=== PATIENT | female | born 1950 | race Caucasian/White ===

== ENCOUNTER 2017-12-17 12:03 | Emergency (ER) | payer MEDICARE, MEDICAID ==
[~2017-12-17] VITALS: Ht 165.1 cm; Wt 61.0 kg
[2017-12-17] MEDS ORDERED: januvia (12:27)
[2017-12-17] MEDS ORDERED: metformin (12:27)
[2017-12-17 15:57] LABS: BASOPHILS % 0.8 % (0.0-2.0); EOSINOPHILS % 2.5 % (0.0-5.0); HEMATOCRIT. 39.5 % (36.0-48.0); HEMOGLOBIN. 13.3 g/dL (12.0-16.0); LYMPHOCYTES % 19.1 % (20.0-50.0); MEAN CORPUSCULAR HEMOGLOBIN 29.1 pg (28.0-32.0); MEAN CORPUSCULAR VOLUME 86.3 fL (81.0-99.0); MEAN PLATELET VOLUME 8.8 fl (7.4-10.4); MONOCYTES % 6.5 % (2.0-8.0); NEUTROPHILS % 71.1 % (40.0-76.0); PLATELET 268 x1000/uL (130-400); RED BLOOD CELL COUNT 4.58 mill/uL (4.2-5.4); RED CELL DISTRIBUTION WIDTH 12.8 % (11.6-14.6)
[2017-12-17 16:04] LABS: CARBON DIOXIDE 28 mEq/L (21-32); CHLORIDE 105 mEq/L (98-107)
[2017-12-17 17:14] VITALS: BP 123/78
== END 2017-12-17 17:25 | disposition home or self-care (01) ==
LOC: ER 13:28
DX: S90.411A Abrasion, right great toe, initial encounter (principal); Y93.89 Activity, other specified; X58.XXXA Exposure to other specified factors, initial encounter; Y92.89 Other specified places as the place of occurrence of the external cause; E11.65 Type 2 diabetes mellitus with hyperglycemia; R03.0 Elevated blood-pressure reading, without diagnosis of hypertension; M77.31 Calcaneal spur, right foot; Z79.84 Long term (current) use of oral hypoglycemic drugs; Z98.890 Other specified postprocedural states
CPT/HCPCS: 36415; 73630; 80048; 82962; 85025; 99285

== ENCOUNTER 2022-05-19 17:37 | Inpatient (IN) | payer MEDICARE, MEDICAID ==
[~2022-05-19] VITALS: Ht 165.1 cm; Wt 61.2 kg
[~2022-05-19 17:37] MED LIST: ASPI-1406 MT; CLOP-31 MT; METF-414 MT; SITA100T11 MT
[2022-05-19] MEDS ORDERED: ONDANSETRON HCL 4MG/2ML INJ IV ONE (19:15)
[2022-05-19 20:00] LABS: CHLORIDE 89 mEq/L (98-107)
[2022-05-19 20:03] LABS: PROTHROMBIN TIME 11.1 sec (9.6-11.0)
[2022-05-19 20:09] LABS: BASOPHILS % 0.6 % (0.0-2.0); EOSINOPHILS % 0.7 % (0.0-5.0); HEMATOCRIT. 31.4 % (36.0-48.0); HEMOGLOBIN. 10.5 g/dL (12.0-16.0); LYMPHOCYTES % 14.8 % (20.0-50.0); MEAN CORPUSCULAR HEMOGLOBIN 27.9 pg (28.0-32.0); MEAN CORPUSCULAR VOLUME 83.3 fL (81.0-99.0); MEAN PLATELET VOLUME 7.7 fl (7.4-10.4); MONOCYTES % 10.2 % (2.0-8.0); NEUTROPHILS % 73.7 % (40.0-76.0); PLATELET 246 x1000/uL (130-400); RED BLOOD CELL COUNT 3.77 mill/uL (4.2-5.4); RED CELL DISTRIBUTION WIDTH 13.8 % (11.6-14.6)
[2022-05-19] MEDS ORDERED: SODIUM CHLORIDE 0.9% 1,000 ML IV ONE (20:30)
[2022-05-19] MEDS ORDERED: MORPHINE SULFATE 4 MG/ML CPJ (NOT FOR IM USE) IV ONE (21:00)
[2022-05-20 00:45] VITALS: BP 131/55
[2022-05-20] MEDS ORDERED: LISI20TA31 PO (03:51)
[2022-05-20] MEDS ORDERED: PRAV20TA57 PO (03:53)
[2022-05-20] MEDS ORDERED: DOCU240C PO (03:56)
[2022-05-20 04:00] VITALS: BP 113/47
[2022-05-20] MEDS ORDERED: ONDANSETRON HCL 4MG/2ML INJ IV PRN (06:30)
[2022-05-20] MEDS ORDERED: SODIUM CHLORIDE 0.9% 1,000 ML IV SCH (06:30)
[2022-05-20] MEDS ORDERED: DEXTROSE 50% WATER 50ML SYRINGE IV PRN (06:30)
[2022-05-20] MEDS: BLOOD SUGAR DIAGNOSTIC STRIP TEST SCH ×4 (07:20→20:52)
[2022-05-20] MEDS: INSULIN LISPRO 100 UNITS/ML SUBCUT SCH ×4 (07:50→20:52)
[2022-05-20 08:00] VITALS: BP 129/56
[2022-05-20 10:29] LABS: BASOPHILS % 0.5 % (0.0-2.0); EOSINOPHILS % 0.8 % (0.0-5.0); HEMATOCRIT. 30.8 % (36.0-48.0); HEMOGLOBIN. 10.4 g/dL (12.0-16.0); MEAN CORPUSCULAR HEMOGLOBIN 28.2 pg (28.0-32.0); MEAN CORPUSCULAR VOLUME 83.5 fL (81.0-99.0); MEAN PLATELET VOLUME 7.5 fl (7.4-10.4); MONOCYTES % 9.9 % (2.0-8.0); NEUTROPHILS % 71.8 % (40.0-76.0); PLATELET 224 x1000/uL (130-400); RED BLOOD CELL COUNT 3.69 mill/uL (4.2-5.4); RED CELL DISTRIBUTION WIDTH 13.6 % (11.6-14.6)
[2022-05-20 12:00] VITALS: BP 124/56
[2022-05-20 12:00] LABS: CREATINE KINASE MB FRACTION 2.4 ng/mL (0.5-3.6)
[2022-05-20] MEDS: ASPIRIN 81MG EC TABLET PO SCH (13:16)
[2022-05-20] MEDS: CLOPIDOGREL 75MG TABLET PO SCH (13:16)
[2022-05-20 14:56] LABS: CREATINE KINASE 128 IU/L (26-192)
[2022-05-20 15:13] LABS: FERRITIN 50 ng/mL (10-291)
[2022-05-20 15:24] LABS: VITAMIN B12 SERUM >2000 pg/mL pg/mL (211-911)
[2022-05-20] MEDS ORDERED: POTASSIUM CHLORIDE 20MEQ TABLET SR PO NR (15:45)
[2022-05-20 16:00] VITALS: BP 123/87
[2022-05-20 16:24] LABS: FOLIC ACID (FOLATE) SERUM >20 ng/mL ng/mL (>5.38)
[2022-05-20 20:00] VITALS: BP 120/67
[2022-05-20] MEDS: ATORVASTATIN CALCIUM 20MG TABLET PO SCH (21:04)
[2022-05-20] MEDS ORDERED: NALOXONE HCL 0.4MG/ML VIAL IV PRN (23:00)
[2022-05-21] VITALS: BP 138/78
[2022-05-21 03:48] VITALS: BP 117/53
[2022-05-21 05:41] LABS: BASOPHILS % 0.6 % (0.0-2.0); EOSINOPHILS % 2.8 % (0.0-5.0); HEMATOCRIT. 29.9 % (36.0-48.0); HEMOGLOBIN. 10.1 g/dL (12.0-16.0); LYMPHOCYTES % 17.4 % (20.0-50.0); MEAN CORPUSCULAR HEMOGLOBIN 28.4 pg (28.0-32.0); MEAN CORPUSCULAR VOLUME 84.2 fL (81.0-99.0); MEAN PLATELET VOLUME 7.7 fl (7.4-10.4); MONOCYTES % 12.6 % (2.0-8.0); NEUTROPHILS % 66.6 % (40.0-76.0); PLATELET 209 x1000/uL (130-400); RED BLOOD CELL COUNT 3.55 mill/uL (4.2-5.4); RED CELL DISTRIBUTION WIDTH 13.7 % (11.6-14.6)
[2022-05-21] MEDS: BLOOD SUGAR DIAGNOSTIC STRIP TEST SCH ×4 (07:39→21:17)
[2022-05-21] MEDS: INSULIN LISPRO 100 UNITS/ML SUBCUT SCH ×4 (07:41→21:33)
[2022-05-21 08:08] VITALS: BP 114/45
[2022-05-21] MEDS: CLOPIDOGREL 75MG TABLET PO SCH (08:46)
[2022-05-21] MEDS: ASPIRIN 81MG EC TABLET PO SCH (08:46)
[2022-05-21] MEDS ORDERED: FERROUS SULFATE 325MG TABLET PO SCH (09:00)
[2022-05-21 12:00] VITALS: BP 123/41
[2022-05-21] MEDS: TAMSULOSIN HCL 0.4MG SR CAPSULE PO SCH (12:50)
[2022-05-21 16:00] VITALS: BP 126/49
[2022-05-21] MEDS: IRON SUCROSE COMPLEX 100 MG/5 ML ML IV SCH (17:28)
[2022-05-21 20:00] VITALS: BP 110/57
[2022-05-21] MEDS: ATORVASTATIN CALCIUM 20MG TABLET PO SCH (21:18)
[2022-05-22] VITALS: BP 118/58
[2022-05-22 04:00] VITALS: BP 123/54
[2022-05-22] MEDS: BLOOD SUGAR DIAGNOSTIC STRIP TEST SCH ×4 (06:21→20:30)
[2022-05-22 07:21] LABS: BASOPHILS % 0.8 % (0.0-2.0); EOSINOPHILS % 3.3 % (0.0-5.0); HEMATOCRIT. 27.4 % (36.0-48.0); HEMOGLOBIN. 9.5 g/dL (12.0-16.0); LYMPHOCYTES % 17.6 % (20.0-50.0); MEAN CORPUSCULAR HEMOGLOBIN 28.7 pg (28.0-32.0); MEAN PLATELET VOLUME 7.8 fl (7.4-10.4); NEUTROPHILS % 68.3 % (40.0-76.0); PLATELET 210 x1000/uL (130-400); RED BLOOD CELL COUNT 3.31 mill/uL (4.2-5.4); RED CELL DISTRIBUTION WIDTH 13.6 % (11.6-14.6)
[2022-05-22] MEDS: INSULIN LISPRO 100 UNITS/ML SUBCUT SCH ×4 (07:50→20:30)
[2022-05-22 08:00] VITALS: BP 126/60
[2022-05-22] MEDS: TAMSULOSIN HCL 0.4MG SR CAPSULE PO SCH (09:09)
[2022-05-22] MEDS: CLOPIDOGREL 75MG TABLET PO SCH (09:09)
[2022-05-22] MEDS: ASPIRIN 81MG EC TABLET PO SCH (09:10)
[2022-05-22 12:00] VITALS: BP 115/58
[2022-05-22] MEDS: POLYETHYLENE GLYCOL 3350 (17GM) 1 DOSE PACK PO SCH (14:50)
[2022-05-22 16:00] VITALS: BP 137/38
[2022-05-22] MEDS: IRON SUCROSE COMPLEX 100 MG/5 ML ML IV SCH (17:31)
[2022-05-22] MEDS: HYDROCODONE/ACETAMINOPHEN 5/325MG TABLET PO PRN (17:51)
[2022-05-22 20:00] VITALS: BP 117/51
[2022-05-22] MEDS: ATORVASTATIN CALCIUM 20MG TABLET PO SCH (20:43)
[2022-05-23] VITALS: BP 109/49
[2022-05-23 04:00] VITALS: BP 125/57
[2022-05-23] MEDS: BLOOD SUGAR DIAGNOSTIC STRIP TEST SCH ×4 (06:24→21:32)
[2022-05-23 06:51] LABS: BASOPHILS % 0.6 % (0.0-2.0); EOSINOPHILS % 2.8 % (0.0-5.0); HEMATOCRIT. 29.7 % (36.0-48.0); HEMOGLOBIN. 10.2 g/dL (12.0-16.0); LYMPHOCYTES % 14.8 % (20.0-50.0); MEAN CORPUSCULAR HEMOGLOBIN 28.7 pg (28.0-32.0); MEAN CORPUSCULAR VOLUME 83.6 fL (81.0-99.0); MEAN PLATELET VOLUME 7.5 fl (7.4-10.4); MONOCYTES % 8.1 % (2.0-8.0); NEUTROPHILS % 73.7 % (40.0-76.0); PLATELET 215 x1000/uL (130-400); RED BLOOD CELL COUNT 3.55 mill/uL (4.2-5.4); RED CELL DISTRIBUTION WIDTH 13.8 % (11.6-14.6)
[2022-05-23] MEDS: INSULIN LISPRO 100 UNITS/ML SUBCUT SCH ×4 (07:50→21:42)
[2022-05-23 08:00] VITALS: BP 119/69
[2022-05-23] MEDS: CLOPIDOGREL 75MG TABLET PO SCH (09:06)
[2022-05-23] MEDS: HYDROCODONE/ACETAMINOPHEN 5/325MG TABLET PO PRN ×2 (09:07→09:12)
[2022-05-23] MEDS: ASPIRIN 81MG EC TABLET PO SCH (09:11)
[2022-05-23] MEDS: POLYETHYLENE GLYCOL 3350 (17GM) 1 DOSE PACK PO SCH (09:17)
[2022-05-23] MEDS: TAMSULOSIN HCL 0.4MG SR CAPSULE PO SCH (09:18)
[2022-05-23 12:00] VITALS: BP 114/47
[2022-05-23 16:00] VITALS: BP 121/52
[2022-05-23 20:00] VITALS: BP 94/55
[2022-05-23] MEDS: ATORVASTATIN CALCIUM 20MG TABLET PO SCH (21:33)
[2022-05-24] VITALS: BP 110/54
[2022-05-24 04:00] VITALS: BP 105/55
[2022-05-24] MEDS: BLOOD SUGAR DIAGNOSTIC STRIP TEST SCH ×4 (06:32→21:00)
[2022-05-24 07:14] LABS: BASOPHILS % 0.6 % (0.0-2.0); EOSINOPHILS % 2.5 % (0.0-5.0); HEMATOCRIT. 27.6 % (36.0-48.0); HEMOGLOBIN. 9.3 g/dL (12.0-16.0); MEAN CORPUSCULAR HEMOGLOBIN 28.4 pg (28.0-32.0); MEAN CORPUSCULAR VOLUME 84.6 fL (81.0-99.0); MEAN PLATELET VOLUME 7.4 fl (7.4-10.4); MONOCYTES % 9.5 % (2.0-8.0); NEUTROPHILS % 69.4 % (40.0-76.0); PLATELET 205 x1000/uL (130-400); RED BLOOD CELL COUNT 3.26 mill/uL (4.2-5.4)
[2022-05-24] MEDS: INSULIN LISPRO 100 UNITS/ML SUBCUT SCH ×4 (07:47→23:00)
[2022-05-24 08:00] VITALS: BP 93/51
[2022-05-24] MEDS: POLYETHYLENE GLYCOL 3350 (17GM) 1 DOSE PACK PO SCH (09:21)
[2022-05-24] MEDS: ASPIRIN 81MG EC TABLET PO SCH (09:22)
[2022-05-24] MEDS: TAMSULOSIN HCL 0.4MG SR CAPSULE PO SCH (09:22)
[2022-05-24] MEDS: CLOPIDOGREL 75MG TABLET PO SCH (09:22)
[2022-05-24 12:00] VITALS: BP 117/44
[2022-05-24 16:00] VITALS: BP 110/50
[2022-05-24 16:55] LABS: CLARITY URINE CLOUDY (CLEAR); COLOR URINE YELLOW (YELLOW); KETONES URINE NEGATIVE (NEGATIVE); LEUKOCYTE ESTERASE URINE 3+ (NEGATIVE); NITRITE URINE NEGATIVE (NEGATIVE); OCCULT BLOOD URINE 2+ (NEGATIVE); PH URINE 6.5 (4.5-8.0); PROTEIN URINE TRACE (NEGATIVE); SPECIFIC GRAVITY URINE 1.008 (1.005-1.030); UROBILINOGEN URINE 0.2 E.U./dL (0.2-1.0)
[2022-05-24] MEDS: ATORVASTATIN CALCIUM 20MG TABLET PO SCH (22:47)
[2022-05-25] VITALS: BP 107/40
[2022-05-25 03:31] VITALS: BP 102/47
[2022-05-25] MEDS: BLOOD SUGAR DIAGNOSTIC STRIP TEST SCH ×3 (06:21→20:38)
[2022-05-25] MEDS: INSULIN LISPRO 100 UNITS/ML SUBCUT SCH ×3 (07:50→20:40)
[2022-05-25 08:00] VITALS: BP 102/40
[2022-05-25] MEDS: CLOPIDOGREL 75MG TABLET PO SCH (09:39)
[2022-05-25] MEDS: TAMSULOSIN HCL 0.4MG SR CAPSULE PO SCH (09:39)
[2022-05-25] MEDS: POLYETHYLENE GLYCOL 3350 (17GM) 1 DOSE PACK PO SCH (09:39)
[2022-05-25] MEDS: ASPIRIN 81MG EC TABLET PO SCH (09:40)
[2022-05-25 12:00] VITALS: BP 126/57
[2022-05-25] MEDS ORDERED: LEVOFLOXACIN 250MG TABLET PO SCH (14:00)
[2022-05-25 15:53] VITALS: BP 136/58
[2022-05-25 20:00] VITALS: BP 129/56
[2022-05-25] MEDS: ATORVASTATIN CALCIUM 20MG TABLET PO SCH (20:38)
[2022-05-26] VITALS: BP 108/47
[2022-05-26 04:00] VITALS: BP 103/49
[2022-05-26] MEDS: BLOOD SUGAR DIAGNOSTIC STRIP TEST SCH ×2 (06:20→12:24)
[2022-05-26 06:31] LABS: BASOPHILS % 0.4 % (0.0-2.0); EOSINOPHILS % 2.5 % (0.0-5.0); HEMATOCRIT. 27.5 % (36.0-48.0); HEMOGLOBIN. 9.5 g/dL (12.0-16.0); MEAN CORPUSCULAR HEMOGLOBIN 29.1 pg (28.0-32.0); MEAN PLATELET VOLUME 7.6 fl (7.4-10.4); MONOCYTES % 10.2 % (2.0-8.0); NEUTROPHILS % 71.9 % (40.0-76.0); PLATELET 230 x1000/uL (130-400); RED BLOOD CELL COUNT 3.27 mill/uL (4.2-5.4); RED CELL DISTRIBUTION WIDTH 13.7 % (11.6-14.6)
[2022-05-26] MEDS: INSULIN LISPRO 100 UNITS/ML SUBCUT SCH ×2 (07:50→12:51)
[2022-05-26 08:00] VITALS: BP 98/50
[2022-05-26] MEDS: ASPIRIN 81MG EC TABLET PO SCH (09:03)
[2022-05-26] MEDS: TAMSULOSIN HCL 0.4MG SR CAPSULE PO SCH (09:04)
[2022-05-26] MEDS: CLOPIDOGREL 75MG TABLET PO SCH (09:04)
[2022-05-26] MEDS: POLYETHYLENE GLYCOL 3350 (17GM) 1 DOSE PACK PO SCH (09:04)
[2022-05-26] MEDS ORDERED: HYDROCODONE/ACETAMINOPHEN 5/325MG TABLET PO PRN ×2 (10:45→11:00)
[2022-05-26] MEDS ORDERED: LEVO250T43 MT (10:46)
[2022-05-26 12:00] VITALS: BP 128/55
[2022-05-26 14:56] VITALS: BP 128/55
[2022-05-26 16:00] VITALS: BP 103/53
== END 2022-05-26 16:50 | disposition home health service (06) | DRG 690 ==
LOC: ER 17:37 → 6WST 21:00 → ENRESERV 22:47
PROVIDERS: ADMIT Internal Medicine; ATTEND Internal Medicine
DX: N13.6 Pyonephrosis (principal); E87.1 Hypo-osmolality and hyponatremia; I50.32 Chronic diastolic (congestive) heart failure; I13.0 Hypertensive heart and chronic kidney disease with heart failure and stage 1 through stage 4 chronic kidney disease, or unspecified chronic kidney disease; E87.2 Acidosis; N17.9 Acute kidney failure, unspecified; S82.91XA Unspecified fracture of right lower leg, initial encounter for closed fracture; N18.9 Chronic kidney disease, unspecified; F32.A Depression, unspecified; I25.10 Atherosclerotic heart disease of native coronary artery without angina pectoris; R32 Unspecified urinary incontinence; E87.6 Hypokalemia; E78.5 Hyperlipidemia, unspecified; I25.2 Old myocardial infarction; G89.29 Other chronic pain; H91.90 Unspecified hearing loss, unspecified ear; E11.22 Type 2 diabetes mellitus with diabetic chronic kidney disease; D63.1 Anemia in chronic kidney disease; D50.9 Iron deficiency anemia, unspecified; Z79.84 Long term (current) use of oral hypoglycemic drugs; Z79.899 Other long term (current) drug therapy; Z98.61 Coronary angioplasty status; Z88.0 Allergy status to penicillin; Z90.49 Acquired absence of other specified parts of digestive tract; Z86.73 Personal history of transient ischemic attack (TIA), and cerebral infarction without residual deficits; X58.XXXA Exposure to other specified factors, initial encounter; Y93.89 Activity, other specified; Y92.89 Other specified places as the place of occurrence of the external cause; Y99.8 Other external cause status; R79.89 Other specified abnormal findings of blood chemistry; R42 Dizziness and giddiness
CPT/HCPCS: 36415; 71045; 74176; 76770; 80048; 80053; 80061; 81003; 82550; 82553; 82607; 82728; 82746; 82962; 83036; 83540; 83550; 83605; 83880; 84145; 84443; 84484; 85025; 87077; 87186; 93005; 93880; 97162; 97166; 99285; J1815; J2270; J2405; J7030; A4315